=== PATIENT | female | born 1995 | race Two or more races ===

== ENCOUNTER → 2024-07-26 | Outpatient (CLI) | payer BC, SELFPAY ==
[2024-07-26 17:05] LABS: Misc Send Out* See Sep Rpt
[2024-07-26 17:32] LABS: Basophils # (Auto) 0.1 Thou/mm3 (0.0-0.2); Basophils % (Auto) 1 % (0-2.5); Eosinophils # (Auto) 1.3 Thou/mm3 (0.0-0.5); Eosinophils % (Auto) 15 % (0-10); Hematocrit 40.2 % (36.0-46.0); Hemoglobin 13.8 g/dL (12.0-16.0); Immature Granulocytes % (Auto) 0 % (0-0); Immature Granulocytes Auto 0.02 Thou/mm3 (0.00-0.00); Lymphocytes # (Auto) 2.1 Thou/mm3 (1.0-4.8); Lymphocytes % (Auto) 24 % (10-50); Mean Corpuscular HGB Conc 34.3 g/dl (31.0-37.0); Mean Corpuscular Hemoglobin 28.8 pg (25.0-35.0); Mean Corpuscular Volume 84 fL (80-100); Monocytes # (Auto) 0.5 Thou/mm3 (0.0-0.8); Monocytes % (Auto) 6 % (0-12); Neutrophils # (Auto) 4.8 Thou/mm3 (1.8-7.7); Neutrophils % (Auto) 55 % (37-80); Nucleated Red Blood Cell % 0 /100 WBC (0); Platelet Count 348 Thou/mm3 (140-440); RDW Standard Deviation 36.6 fL (36.4-46.3); Red Blood Count 4.79 Miln/mm3 (4.00-5.20); White Blood Count 8.9 Thou/mm3 (3.6-11.0)
[2024-07-26 17:59] LABS: Alanine Aminotransferase 15 U/L (10-49); Albumin, Serum 4.8 gm/dL (3.5-5.0); Albumin/Globulin Ratio 1.7 (1.2-2.2); Alkaline Phosphatase 92 U/L (46-116); Anion Gap 8 (7-16); Aspartate Amino Transferase 13 U/L (0-34); BUN/Creatinine Ratio 14 Ratio (12-20); Bilirubin,Total 0.2 mg/dL (0.3-1.2); Blood Urea Nitrogen 11 mg/dL (9-23); Calcium 9.2 mg/dL (8.3-10.6); Calcium (Corrected) 9.2 mg/dL (8.5-10.1); Carbon Dioxide 29.2 mMol/L (20.0-31.0); Chloride 105 mMol/L (98-107); Creatinine (Component) 0.8 mg/dL (0.6-1.3); Globulin 2.9 gm/dL (2.3-3.5); Glucose 101 mg/dL (74-106); Osmolality,Calculated 282 (275-295); Potassium 4.1 mMol/L (3.4-5.1); Sodium 142 mMol/L (136-145); Total Protein 7.7 gm/dL (5.7-8.2); eGFR > 60 See Note
[2024-07-26 18:14] LABS: Sed Rate (ESR) 18 mm/hr (0-20)
[2024-08-06 07:27] LABS: Immunoglobulin A 426 mg/dL (47-310); hs-CRP* 3.8 mg/L; tTG Ab, IgA <1.0 U/mL
== END | disposition home or self-care (01) ==
LOC: COPL 16:51
PROVIDERS: PCP Family Medicine; Referring Provider Specialist; Visit Provider Specialist
DX: R19.7 Diarrhea, unspecified (principal); R19.5 Other fecal abnormalities; R10.30 Lower abdominal pain, unspecified
CPT/HCPCS: 36415; 80053; 82784; 85025; 85652; 86141; 86364

== ENCOUNTER → 2024-07-30 | Outpatient (CLI) | payer BC, SELFPAY ==
[2024-08-06 07:28] LABS: Calprotectin, Stool* 10 mcg/g
== END | disposition home or self-care (01) ==
LOC: SLDO 09:24
PROVIDERS: Referring Provider Specialist; Visit Provider Specialist
DX: R19.7 Diarrhea, unspecified (principal); R10.30 Lower abdominal pain, unspecified; R19.5 Other fecal abnormalities
CPT/HCPCS: 83993

== ENCOUNTER 2024-09-07 07:50 | Day surgery (SDC) | payer BC, SELFPAY ==
[2024-09-06 11:07] LABS: HCG Qualitative,Urine Negative
[2024-09-06 11:58] VITALS: BMI 22.4
[2024-09-07] VITALS (10 sets, daily range): BP systolic 99–123; BP diastolic 58–86; PULSE 68–114; RESP 11–21; TEMP 36.2–36.5; O2SAT 98–100; BMI 22.4
[2024-09-07] MEDS: SODIUM CHLORIDE 0.9% 500 ML 500 ML 20 ML IV (10:03)
[2024-09-07] MEDS: MIDAZOLAM INJ 1 MG/ML VIAL 2 ML (ASD USE ONLY) 2 MG IVP (10:10)
[2024-09-07] MEDS: DiphenhydrAMINE INJ 50 MG/ML VIAL 25 MG IVP (10:10)
[2024-09-07] MEDS: fentaNYL CIT INJ 50 mCg/ML AMP 2ML (ASD USE ONLY) IVP (10:10)
--- NOTE | 2024-09-07 11:01 | SUR.PHASEII ---
pt resting in wheel waiting for ride to arrive/ no c/o pain, pt tolerating fluids well.
== END 2024-09-07 11:06 | disposition home or self-care (01) ==
PROVIDERS: PCP Family Medicine; Referring Provider Specialist; Visit Provider Specialist
PROC: 0DBE8ZX Excision of Large Intestine, Via Natural or Artificial Opening Endoscopic, Diagnostic (ICD-10-PCS; CPT 45380; principal; 2024-09-07 09:15)
DX: K52.9 Noninfective gastroenteritis and colitis, unspecified (principal); K63.89 Other specified diseases of intestine; K62.89 Other specified diseases of anus and rectum; K64.9 Unspecified hemorrhoids
CPT/HCPCS: 45380; 81025; J1200; J2250; J3010; J7040